=== PATIENT | female | born 1965 | race Caucasian/White ===

== ENCOUNTER 2016-10-22 05:08 | Day surgery (SDC) | payer OTHER ==
[2016-10-19 15:46] VITALS: BMI 26.5
[2016-10-22] MEDS ORDERED: PROPOFOL 20 ML ONE (14:51)
[2016-10-22] MEDS ORDERED: LIDOCAINE HCL/PF 2% SDV 5ML VIAL ONE (14:51)
[2016-10-22] MEDS ORDERED: MIDAZOLAM HCL 2 MG/2 ML SINGLE DOSE VIAL ONE (14:52)
[2016-10-22] MEDS ORDERED: oxyCODONE HCL 5 MG TABLET PO PRN ×2 (15:07→15:42)
[2016-10-22] MEDS ORDERED: IBUPROFEN 600 MG TABLET (FP) PO PRN (15:07)
[2016-10-22] MEDS ORDERED: ONDANSETRON 4 MG/2 ML VIAL IVPB PRN (15:07)
[2016-10-22] MEDS ORDERED: IBUPROFEN 800 MG/8 ML IJ IVPB PRN (15:07)
--- NOTE | 2016-10-22 15:12 | HP ---
Past Medical History - Primary Care Physician PCP:: Chucky Petit - Admission Chief Complaint: irregular ,heavy menses History of Present Illness: 50 yo f with hx of irregular ,heavy vaginal bleeding ,sono thicken EM r/o polyp admitted for hysteroscopy D&C, rba discussed History Source: Patient Limitations to Obtaining History: No Limitations - Past Surgical History Hx Myomectomy: No Hx Transabdominal Cerclage: No - Smoking History Smoking history: Former smoker Have you smoked in the past 12 months: No If you are a former smoker, when did you quit?: 30YRS AGO - Alcohol/Substance Use Hx Alcohol Use: Yes (SOCIALLY) - Social History Usual Living Arrangement: Yes: With Spouse Home Medications - Allergies Allergies/Adverse Reactions: Allergies Allergy/AdvReac Type Severity Reaction Status Date / Time egg Allergy Verified 10/22/16 13:57 levofloxacin [From Levaquin] Allergy "HIVES,NAUS Verified 10/22/16 13:57 EA" Penicillins Allergy Verified 10/22/16 13:57 - Home Medications Home Medications: Ambulatory Orders Albuterol Sulfate Inhaler - [Ventolin Hfa Inhaler -] 1 - 2 inh PO PRN PRN Budesonide/Formeterol Fumarate [SYMBICORT 80/4.5mcg -] 1 inh PO BID 10/19/16 Flaxseed/Omega3,6,9/Fatty Acid [Flax Seed Oil 1,300 mg Softgel] 1 each PO DAILY 10/19/16 Ibuprofen [Advil -] 200 mg PO PRN PRN 10/19/16 L.acidoph,Paracasei, B.lactis [Probiotic] 1 each PO DAILY 10/19/16 Ibuprofen [Motrin -] 600 mg PO TID #21 tablet 10/22/16 Review of Systems - Review of Systems Constitutional: reports: No Symptoms Eyes: reports: No Symptoms HENT: reports: No Symptoms Neck: reports: No Symptoms Cardiovascular: reports: No Symptoms Respiratory: reports: No Symptoms Genitourinary: reports: Vaginal Bleeding Breasts: reports: No Symptoms Reported Musculoskeletal: reports: No Symptoms Integumentary: reports: No Symptoms Neurological: reports: No Symptoms Endocrine: reports: No Symptoms Physical Exam-CHIEF I DISPATCHER Vital Signs: Vital Signs Temperature Pulse Rate 72 10/22/16 13:59 Respiratory Rate 16 10/22/16 13:59 Blood Pressure 124/72 10/22/16 13:59 O2 Sat by Pulse Oximetry (%) 98 10/22/16 13:59 Constitutional: Yes: Well Nourished, No Distress, Calm Eyes: Yes: WNL, Conjunctiva Clear, EOM Intact HENT: Yes: WNL, Atraumatic, Normocephalic Neck: Yes: WNL, Supple, Trachea Midline Cardiovascular: Yes: WNL, Regular Rate and Rhythm Respiratory: Yes: WNL, Regular, CTA Bilaterally Gastrointestinal: Yes: WNL ...Rectal Exam: Yes: WNL Renal/: Yes: WNL Vaginal Exam: Yes: Normal Cervix: Yes: Normal Uterus: Yes: Normal Adnexa: Not Palpable: Left, Right Breast(s): Yes: WNL Musculoskeletal: Yes: WNL Extremities: Yes: WNL Integumentary: Yes: WNL Neurological: Yes: WNL, Alert, Oriented ...Motor Strength: WNL Psychiatric: Yes: WNL, Alert, Oriented Problem List - Problem (1) Menometrorrhagia Code(s): N92.1 - EXCESSIVE AND FREQUENT MENSTRUATION WITH IRREGULAR CYCLE (2) Thickened endometrium Code(s): R93.8 - ABNORMAL FINDINGS ON DIAGNOSTIC IMAGING OF BODY STRUCTURES Assessment/Plan hysteroscopy D&C
[2016-10-22] MEDS ORDERED: ELECTROLYTE-148 SOLN 1,000 ML IV SCH (15:15)
[2016-10-22] MEDS ORDERED: DEXAMETHASONE SOD PHOSPHATE 4 MG/1 ML VIAL ONE (15:16)
[2016-10-22] MEDS ORDERED: ONDANSETRON 4 MG/2 ML VIAL IVPUSH PRN (15:42)
[2016-10-22] MEDS ORDERED: LACTATED RINGERS SOLUTION 1,000 ML IV SCH (15:45)
[2016-10-22 16:02] VITALS: TEMP 97.8
[2016-10-22 18:17] VITALS: BP 129/76; PULSE 54
--- NOTE | 2016-10-23 09:25 | OP ---
DATE OF OPERATION: 10/22/2016 PREOPERATIVE DIAGNOSIS: Menometrorrhagia and thickened endometrium. POSTOPERATIVE DIAGNOSIS: Menometrorrhagia and thickened endometrium. PROCEDURE: Hysteroscopy, dilation and curettage. SURGEON: Chucky Petit MD ANESTHESIA: General. ESTIMATED BLOOD LOSS: 50 mL. DESCRIPTION OF PROCEDURE: The patient was taken to the operating room and under adequate general anesthesia, examination under anesthesia revealed the external genitalia to be normal. Vagina was normal. Cervix was clean. No gross lesion. Uterus normal size, anteverted. Adnexa: No masses were palpable. Then with the weighted speculum in the vagina, anterior lip of the cervix was grasped with single-tooth tenaculum. Cervix was slightly dilated. Hysteroscope was introduced and the cervical canal appeared to be normal. In the lower uterine segment there was a thick band of adhesion which divided the uterus into sections. These adhesions were cut and released and then the hysteroscope was introduced and both cornual regions were identified and seen. Both tubal ostia were seen. No polyp. The uterus cavity appeared atrophic. No other abnormality was found. Then the endometrium was curetted and then the procedure was terminated. The patient tolerated the procedure well, left the OR in good condition. Nicole [id number]
--- NOTE | 2016-10-26 12:40 | PATH ---
Surgical Pathology Report Patient Name: JUAN CARLOS STODDARD [facility]. Rec. #: [id number] /Age/Gender: 1965 (Age: 50) / F Account: [id number] Location: [facility] SURGICAL Taken: 10/22/2016 Received: 10/23/2016 Reported: 10/26/2016 Physicians: Chucky Petit M.D. Specimen(s) Received ENDOMETRIAL CURETTINGS Clinical History Menorrhagia, endometrial polyp Final Diagnosis ENDOMETRIUM, CURETTAGE: FRAGMENTS OF ATROPHIC APPEARING ENDOMETRIUM. FRAGMENTS OF BENIGN SQUAMOUS EPITHELIUM. Electronically Signed Gurpreet Stevens M.D. Gross Description Received in formalin labeled "endometrial curettage" is a 2.3 x 1.8 x 0.3 cm aggregate of hinton-red soft tissue fragments admixed with blood clot. The formalin is filtered and the specimen is entirely submitted in one cassette. /10/23/2016 saudi/10/23/2016
== END 2016-10-22 18:21 | disposition home or self-care (01) ==
LOC: JASU-SURG 05:08
PROVIDERS: ATTEND Obstetrics & Gynecology
PROC: 0UDB8ZX Extraction of Endometrium, Via Natural or Artificial Opening Endoscopic, Diagnostic (ICD-10-PCS; principal; 2016-10-22 15:00)
DX: N92.1 Excessive and frequent menstruation with irregular cycle (principal); R93.8 Abnormal findings on diagnostic imaging of other specified body structures
CPT/HCPCS: 84703; 88305-TC; 94760

== ENCOUNTER 2022-12-31 05:08 | Day surgery (SDC) | payer OTHER ==
[2022-12-29 10:39] VITALS: BMI 26.9
[2022-12-31] MEDS ORDERED: PROPOFOL 80 ML ONE (09:51)
[2022-12-31] MEDS ORDERED: MIDAZOLAM HCL 2 MG/2 ML SINGLE DOSE VIAL ONE (09:52)
[2022-12-31] MEDS ORDERED: HYDROmorphone HCl 2 MG/ML VIAL ONE (10:21)
[2022-12-31] MEDS ORDERED: ceFAZolin 2 GRAM PREMIX BAG IVPB ONE (10:45)
[2022-12-31] MEDS ORDERED: PROPOFOL 100 ML ONE (11:09)
[2022-12-31] MEDS ORDERED: LIDOCAINE HCL 1%, 10 MG/ML (50 mL VIAL) NR ONE (11:10)
[2022-12-31] MEDS ORDERED: BUPIVACAINE HCL/PF 0.5% (5MG/ML) 10 ML VIAL IJ ONE (11:10)
[2022-12-31] MEDS ORDERED: MICROFIBRILLAR COLLAGEN 1 GM EACH NR ONE (12:01)
[2022-12-31] MEDS ORDERED: ACETAMINOPHEN 1000 MG/100 ML BAG IVPB ONE ×2 (13:09→13:36)
[2022-12-31] MEDS ORDERED: LACTATED RINGERS SOLUTION 1,000 ML IV SCH ×2 (13:15)
[2022-12-31] MEDS ORDERED: CALCITRIOL 0.25 MCG CAPSULE (FP) PO ONE (13:30)
[2022-12-31] MEDS ORDERED: CALCIUM CARBONATE 650 MG TABLET PO ONE (13:30)
[2022-12-31] MEDS ORDERED: ACETAMINOPHEN INJECTION 100 ML IVPB ONE (13:30)
[2022-12-31] MEDS ORDERED: ONDANSETRON 4 MG/2 ML VIAL IVPUSH PRN (14:02)
[2022-12-31] MEDS ORDERED: oxyCODONE HCL 5 MG TABLET PO PRN (14:02)
[2022-12-31 16:53] VITALS: RESP 16
[2022-12-31] MEDS ORDERED: oxyCODONE HCL 5 MG TABLET ONE (17:13)
[2022-12-31] MEDS ORDERED: oxyCODONE HCL 5 MG TABLET PO ONE (17:17)
[2022-12-31 18:48] VITALS: BP 125/67; PULSE 70; TEMP 97.3
== END 2022-12-31 18:50 | disposition home or self-care (01) ==
LOC: JASU-SURG 05:08
PROVIDERS: ATTEND Surgery
PROC: 0GSR0ZZ Reposition Parathyroid Gland, Open Approach (ICD-10-PCS; 2022-12-31)
PROC: 0GTK0ZZ Resection of Thyroid Gland, Open Approach (ICD-10-PCS; principal; 2022-12-31 10:00)
DX: C73 Malignant neoplasm of thyroid gland (principal)
CPT/HCPCS: 86850; 86900; 86901; 88305-TC; 88307-TC; 88331-TC; 88341-TC; 88342-TC; 94760